=== PATIENT | male | born 1965 | race Caucasian/White ===

== ENCOUNTER 2017-02-14 09:33 | Emergency (ER) | payer OTHER ==
[~2017-02-14] VITALS: Ht 188 cm; Wt 122.0 kg
[2017-02-14] MEDS ORDERED: ACET325T14 PO (09:52)
[2017-02-14] MEDS ORDERED: ONDANSETRON 2MG/ML, 2ML IVPush ONE (10:00)
[2017-02-14] MEDS ORDERED: KETOROLAC 30 MG/1 ML IVPush ONE (10:00)
[2017-02-14 10:13] LABS: HEMATOCRIT 49.4 % (39.2-51.8); HEMOGLOBIN 17.2 g/dL (13.7-18.0); WHITE BLOOD COUNT 7.7 x10^3/uL (3.4-10)
[2017-02-14 10:24] LABS: BLOOD UREA NITROGEN 13 mg/dL (7-18)
[2017-02-14] MEDS ORDERED: ONDANSETRON 2MG/ML, 2ML ONE (10:25)
[2017-02-14] MEDS ORDERED: KETOROLAC 30 MG/1 ML ONE (10:25)
[2017-02-14] MEDS ORDERED: MORPHINE SULFATE 4 MG/ML, 1ML ONE (10:25)
[2017-02-14] MEDS: MORPHINE SULFATE 4 MG/ML, 1ML IVPush PRN ×2 (10:36→11:32)
[2017-02-14] MEDS ORDERED: PROMETHAZINE 25 MG/ML, 1ML ONE (10:58)
[2017-02-14] MEDS ORDERED: PROMETHAZINE 25 MG/ML, 1ML IM ONE (11:00)
[2017-02-14] MEDS ORDERED: morphine SULFATE 10 MG/ML, 1ML ONE (11:28)
[2017-02-14] MEDS ORDERED: SODIUM CHLORIDE 0.9% 1,000ML IVBOLUS ONE (12:00)
[2017-02-14 13:54] VITALS: BP 122/66
== END 2017-02-14 13:56 | disposition home or self-care (01) ==
LOC: ED 10:31
DX: N13.2 Hydronephrosis with renal and ureteral calculous obstruction (principal); R31.9 Hematuria, unspecified
CPT/HCPCS: 36415; 74176; 80048; 81001; 82040; 85025; 87086; 96361; 96372; 96374; 96375; 96376; 99285; J1885; J2405; J2550; J7030

== ENCOUNTER 2017-03-15 06:32 | Day surgery (SDC) | payer OTHER ==
[2017-03-13 15:24] VITALS: BP 137/91
[2017-03-13 16:00] LABS: ANION GAP 8 mmol/L (5-15); CALCIUM 8.7 mg/dL (8.5-10.1); CHLORIDE 108 mmol/L (98-107)
[2017-03-13 16:05] LABS: ALANINE AMINOTRANSFERASE 35 U/L (12-78); ALKALINE PHOSPHATASE 71 U/L (45-117); BILIRUBIN,TOTAL 0.6 mg/dL (0.2-1.0); CREATININE 0.89 mg/dL (0.7-1.3); TOTAL PROTEIN 7.9 g/dL (6.4-8.2)
[2017-03-13 16:06] LABS: MICROSCOPIC INDICATED
[~2017-03-15] VITALS: Ht 190.5 cm; Wt 122.8 kg
[~2017-03-15 06:32] MED LIST: ACET325T14 PO; NONE PER PT
[2017-03-15] MEDS ORDERED: LACTATED RINGERS 1,000 ML IV SCH (07:15)
[2017-03-15] MEDS ORDERED: LIDOCAINE-MPF 2% ,5ML ONE (08:19)
[2017-03-15] MEDS ORDERED: PROPOFOL 10 MG/ML, 20ML ONE (08:19)
[2017-03-15] MEDS ORDERED: FENTANYL PF 100 MCG/2ML ONE (08:20)
[2017-03-15] MEDS ORDERED: GENTAMICIN 80 MG/2 ML ONE (08:27)
[2017-03-15] MEDS ORDERED: AMPICILLIN 1 GM ONE (08:27)
[2017-03-15] MEDS ORDERED: FENTANYL PF 100 MCG/2ML IV PRN (08:30)
[2017-03-15] MEDS ORDERED: ONDANSETRON 2MG/ML, 2ML IVPush PRN (08:30)
[2017-03-15] MEDS ORDERED: morphine SULFATE 10 MG/ML, 1ML IV PRN (08:30)
[2017-03-15] MEDS ORDERED: ONDANSETRON 2MG/ML, 2ML ONE (08:45)
[2017-03-15] MEDS ORDERED: DEXAMETHASONE 4 MG/ML, 1ML ONE ×2 (08:45)
[2017-03-15] MEDS ORDERED: OMNIPAQUE 350 MG/ML, 50 ML BOTTLE ONE (09:51)
[2017-03-15] MEDS ORDERED: OXYcodone 5 MG/5 ML ORAL.SOL UDC PO PRN (10:00)
[2017-03-15] MEDS ORDERED: ACETAMINOPHEN 325 MG TABLET PO PRN (10:00)
[2017-03-15] MEDS ORDERED: PHENAZOPYRIDINE 200 MG TABLET ONE (10:04)
[2017-03-15] MEDS ORDERED: PHENAZOPYRIDINE 200 MG TABLET PO ONE (10:30)
[2017-03-15] MEDS ORDERED: HYDROmorphone 2 MG/ML, 1ML ONE (11:23)
[2017-03-15] MEDS ORDERED: KETOROLAC 30 MG/1 ML ONE (11:24)
[2017-03-15] MEDS ORDERED: KETOROLAC 30 MG/1 ML IVPush ONE (11:30)
[2017-03-15] MEDS ORDERED: HYDROmorphone 1 MG/ML, 1ML IV ONE (11:30)
== END 2017-03-15 12:15 | disposition home or self-care (01) ==
LOC: OUT 06:32
PROVIDERS: ATTEND Student in an Organized Health Care Education/Training Program
DX: N20.2 Calculus of kidney with calculus of ureter (principal); N13.5 Crossing vessel and stricture of ureter without hydronephrosis; Z98.890 Other specified postprocedural states
CPT/HCPCS: 36415; 52341; 74420; 80053; 81001; 87086; C1726; C1758; C1769; C2617; J0290; J1100; J1170; J1580; J1885; J2405; J2704; J3010; J3490; J7120; Q9967

== ENCOUNTER 2017-03-21 08:20 | Day surgery (SDC) | payer OTHER ==
[~2017-03-21] VITALS: Ht 188 cm; Wt 121.0 kg
[2017-03-21] MEDS ORDERED: LACTATED RINGERS 1,000 ML IV SCH (08:39)
[2017-03-21 08:42] VITALS: BP 149/84
[2017-03-21 08:44] VITALS: BP 142/94
[2017-03-21] MEDS ORDERED: LIDOCAINE 1%, 2ML SQ PRN (09:00)
[2017-03-21] MEDS ORDERED: PLEASE ENTER HEIGHT AND WEIGHT MC SCH (09:00)
[2017-03-21] MEDS ORDERED: TAMS0.4C2 PO (09:28)
[2017-03-21] MEDS ORDERED: CEPH-368 PO (09:28)
[2017-03-21] MEDS ORDERED: OXYB10TA6 PO (09:28)
[2017-03-21] MEDS ORDERED: PHEN-582 PO (09:28)
[2017-03-21] MEDS ORDERED: CEFAZOLIN 1,000 MG ONE (11:33)
[2017-03-21] MEDS ORDERED: KETOROLAC 30 MG/1 ML ONE (11:33)
[2017-03-21] MEDS ORDERED: ONDANSETRON 2MG/ML, 2ML ONE (11:33)
[2017-03-21] MEDS ORDERED: DEXAMETHASONE 4 MG/ML, 1ML ONE (11:33)
[2017-03-21] MEDS ORDERED: PROPOFOL 10 MG/ML, 20ML ONE (11:33)
[2017-03-21] MEDS ORDERED: hydrALAzine 20 MG/ML, 1ML IV PRN (12:00)
[2017-03-21] MEDS ORDERED: ACETAMINOPHEN 325 MG TABLET PO PRN (12:00)
[2017-03-21] MEDS ORDERED: ONDANSETRON 2MG/ML, 2ML IVPush PRN (12:00)
[2017-03-21] MEDS ORDERED: FENTANYL PF 100 MCG/2ML IV PRN (12:00)
[2017-03-21] MEDS ORDERED: LABETALOL 5MG/ML, 20ML IV PRN (12:00)
[2017-03-21] MEDS ORDERED: HYDROmorphone 1 MG/ML, 1ML IV PRN (12:00)
[2017-03-21] MEDS ORDERED: OXYcodone 5 MG/5 ML ORAL.SOL UDC PO PRN (12:00)
[2017-03-21] MEDS ORDERED: ACETAMINOPHEN 650 MG/20.3 ML UDC ONE (13:36)
== END 2017-03-21 14:40 ==
LOC: OUT 08:20
PROVIDERS: ATTEND Student in an Organized Health Care Education/Training Program
DX: N20.1 Calculus of ureter (principal); N13.5 Crossing vessel and stricture of ureter without hydronephrosis; Z98.890 Other specified postprocedural states
CPT/HCPCS: 52356; 74420; 82360; 88300; C1758; C1769; C2617; J0690; J1100; J1885; J2405; J2704; J7120